=== PATIENT | female | born 1990 | race African-American/Black ===

== ENCOUNTER 2021-08-27 08:06 | Inpatient (IN) | payer BC, OTHER ==
[~2021-08-27] VITALS: Ht 167.6 cm; Wt 117.9 kg
[2021-08-27] MEDS ORDERED: KETOROLAC TROMETHAMINE 30 MG/ML VIAL IV STA (08:37)
[2021-08-27] MEDS ORDERED: LACTATED RINGER'S 1,000 ML INJ ONE (08:45)
[2021-08-27 09:09] LABS: BASOPHILS # (AUTO) 0.1 (0.0-0.1); BASOPHILS % 0.3 % (0.0-1.0); EOSINOPHILS # (AUTO) 0.3 (0.0-0.4); EOSINOPHILS % 1.7 % (0.0-6.0); LYMPHOCYTES # (AUTO) 2.1 (1.0-3.2); LYMPHOCYTES % 12.3 % (18.0-39.1); MEAN CORPUSCULAR HEMOGLOBIN 15.9 pg (28-32); MEAN CORPUSCULAR HGB CONC 26.2 g/dL (31-35); MEAN CORPUSCULAR VOLUME 60.5 fL (81-99); MONOCYTES # (AUTO) 1.4 (0.2-0.8); MONOCYTES % 7.8 % (4.4-11.3); NEUTROPHILS # (AUTO) 13.4 (2.1-6.9); NEUTROPHILS % 76.9 % (38.7-80.0); PLATELET COUNT 664 x10e3/uL (140-360); RED BLOOD COUNT 3.09 x10e6/uL (3.6-5.1); RED CELL DISTRIBUTION WIDTH 20.6 % (11.7-14.4)
[2021-08-27 09:16] LABS: HEMATOCRIT 18.7 % (34.2-44.1); HEMOGLOBIN 4.9 g/dL (12.0-16.0)
[2021-08-27] MEDS ORDERED: SODIUM CHLORIDE 0.9% 250ML 250 ML IV ONE (09:30)
[2021-08-27 09:35] LABS: ANION GAP 15.3 mmol/L (8-16); CALCIUM 9.3 mg/dL (8.4-10.2); CREATININE, SERUM 0.79 mg/dL (0.57-1.11); POTASSIUM 3.3 mmol/L (3.5-5.1)
[2021-08-27 10:23] LABS: FERRITIN 27.19 ng/mL (4.63-204.00)
[2021-08-27 11:40] VITALS: BP 118/67
[2021-08-27 11:53] LABS: BASOPHILS # (AUTO) 0.1 (0.0-0.1); BASOPHILS % 0.3 % (0.0-1.0); EOSINOPHILS # (AUTO) 0.3 (0.0-0.4); EOSINOPHILS % 1.6 % (0.0-6.0); LYMPHOCYTES # (AUTO) 2.2 (1.0-3.2); LYMPHOCYTES % 13.4 % (18.0-39.1); MEAN CORPUSCULAR HEMOGLOBIN 15.9 pg (28-32); MEAN CORPUSCULAR HGB CONC 25.7 g/dL (31-35); MEAN CORPUSCULAR VOLUME 61.8 fL (81-99); MONOCYTES # (AUTO) 1.3 (0.2-0.8); MONOCYTES % 7.7 % (4.4-11.3); NEUTROPHILS # (AUTO) 12.5 (2.1-6.9); NEUTROPHILS % 76.3 % (38.7-80.0); PLATELET COUNT 614 x10e3/uL (140-360); RED BLOOD COUNT 2.83 x10e6/uL (3.6-5.1)
[2021-08-27 11:54] VITALS: BP 118/67
[2021-08-27 11:57] LABS: HEMATOCRIT 17.5 % (34.2-44.1)
[2021-08-27 11:59] LABS: HEMOGLOBIN 4.5 g/dL (12.0-16.0)
[2021-08-27 12:06] LABS: EOSINOPHILS % (MANUAL) 1 % (0-7); LYMPHOCYTES % (MANUAL) 19 % (19-48); MONOCYTES % (MANUAL) 4 % (3.4-9.0); NEUTROPHILS % (MANUAL) 75 % (40-74); PLATELET ESTIMATE SLIGHTLY INCREASED; PLATELET MORPHOLOGY COMMENT NORMAL
[2021-08-27 12:07] LABS: HYPOCHROMASIA SLIGHT; RBC MORPHOLOGY COMMENT NORMAL
[2021-08-27] MEDS ORDERED: FERROUS SULFAT325 MG PO (12:10)
[2021-08-27 13:40] LABS: CLARITY,URINE CLEAR (CLEAR); COLOR,URINE YELLOW (YELLOW); KETONES,URINE TRACE (NEGATIVE); LEUKOCYTE ESTERASE ,URINE TRACE (NEGATIVE); NITRITE,URINE NEGATIVE (NEGATIVE); PROTEIN,URINE DIPSTICK 2+ (NEGATIVE); URINE UROBILINOGEN 0.2 mg/dL (0.2 - 1)
[2021-08-27 13:42] LABS: BACTERIA,URINE RARE /HPF; EPITHELIAL CELLS,URINE FEW /LPF; RBC,URINE 0-5 /HPF (0-5)
[2021-08-27] MEDS ORDERED: SODIUM CHLORIDE 0.9% 250ML 250 ML ONE (14:16)
[2021-08-27 16:58] VITALS: BP 126/82
[2021-08-27] MEDS: SODIUM FERRIC GLUCONATE COMPLX 125 MG in SODIUM CHLORIDE 0.9% 100 ML 100 ML IV SCH (17:00)
[2021-08-27] MEDS ORDERED: FUROSEMIDE INJ 10 MG/ML 2 ML VIAL IV ONE (18:30)
[2021-08-27 20:32] VITALS: BP 118/76
[2021-08-27 20:33] VITALS: BP 118/76
[2021-08-27] MEDS ORDERED: METOPROLOL TARTRATE INJ 1 MG/ML VIAL IV PRN (21:30)
[2021-08-27] MEDS ORDERED: SODIUM CHLORIDE 0.9% 500ML 500 ML ONE (21:44)
[2021-08-27] MEDS: BENZONATATE 100 MG CAP PO PRN (21:45)
[2021-08-27] MEDS: ACETAMINOPHEN 325 MG TAB PO PRN (21:51)
[2021-08-27 23:02] VITALS: BP 118/76
[2021-08-28] VITALS (10 sets, daily range): BP systolic 116–131; BP diastolic 75–88
[2021-08-28 06:30] LABS: ANION GAP 14.2 mmol/L (8-16); CREATININE, SERUM 0.78 mg/dL (0.57-1.11); POTASSIUM 3.2 mmol/L (3.5-5.1)
[2021-08-28 06:51] LABS: CALCIUM 8.6 mg/dL (8.4-10.2)
[2021-08-28 10:00] LABS: BASOPHILS % 0.2 % (0.0-1.0); EOSINOPHILS # (AUTO) 0.5 (0.0-0.4); EOSINOPHILS % 3.3 % (0.0-6.0); LYMPHOCYTES % 14.6 % (18.0-39.1); MEAN CORPUSCULAR HEMOGLOBIN 18.2 pg (28-32); MEAN CORPUSCULAR HGB CONC 27.8 g/dL (31-35); MEAN CORPUSCULAR VOLUME 65.5 fL (81-99); MONOCYTES # (AUTO) 0.9 (0.2-0.8); MONOCYTES % 6.3 % (4.4-11.3); NEUTROPHILS # (AUTO) 10.4 (2.1-6.9); PLATELET COUNT 612 x10e3/uL (140-360); RED CELL DISTRIBUTION WIDTH 23.6 % (11.7-14.4)
[2021-08-28 10:01] LABS: HEMATOCRIT 21.6 % (34.2-44.1)
[2021-08-28 10:15] LABS: CHOL/HDL RATIO 3.4 (3.0-3.6)
[2021-08-28] MEDS ORDERED: SODIUM CHLORIDE 0.9% 250ML 250 ML ONE ×2 (10:23→16:26)
[2021-08-28 11:31] LABS: HYPOCHROMASIA MODERATE; PLATELET ESTIMATE MODERATELY INCREASED; PLATELET MORPHOLOGY COMMENT NORMAL; RBC MORPHOLOGY COMMENT ABNORMAL
[2021-08-28 11:32] LABS: ANISOCYTOSIS MARKED; ELLIPTOCYTE, RBC SLIGHT; MICROCYTOSIS MODERATE; OVALOCYTES FEW; POLYCHROMASIA FEW
[2021-08-28] MEDS: SODIUM FERRIC GLUCONATE COMPLX 125 MG in SODIUM CHLORIDE 0.9% 100 ML 100 ML IV SCH (14:30)
[2021-08-28] MEDS ORDERED: SODIUM CHLORIDE 0.9% 50ML 50 ML ONE (16:11)
[2021-08-28] MEDS ORDERED: IOPAMIDOL 370 MG/ML 200 ML INFUS..BTL INJ ONE (16:11)
[2021-08-28 17:22] LABS: BASOPHILS % 0.3 % (0.0-1.0); EOSINOPHILS # (AUTO) 0.4 (0.0-0.4); LYMPHOCYTES # (AUTO) 2.2 (1.0-3.2); LYMPHOCYTES % 16.8 % (18.0-39.1); MEAN CORPUSCULAR HEMOGLOBIN 19.2 pg (28-32); MEAN CORPUSCULAR HGB CONC 27.9 g/dL (31-35); MEAN CORPUSCULAR VOLUME 68.7 fL (81-99); MONOCYTES # (AUTO) 0.9 (0.2-0.8); MONOCYTES % 7.2 % (4.4-11.3); NEUTROPHILS # (AUTO) 9.5 (2.1-6.9); PLATELET COUNT 494 x10e3/uL (140-360); RED BLOOD COUNT 3.23 x10e6/uL (3.6-5.1); RED CELL DISTRIBUTION WIDTH 25.8 % (11.7-14.4)
[2021-08-28 17:24] LABS: HEMATOCRIT 22.2 % (34.2-44.1)
[2021-08-28 17:25] LABS: HEMOGLOBIN 6.2 g/dL (12.0-16.0)
[2021-08-28] MEDS ORDERED: SODIUM CHLORIDE 0.9% 250ML 250 ML IV ONE (18:15)
[2021-08-29] VITALS (8 sets, daily range): BP systolic 114–148; BP diastolic 80–85
[2021-08-29] MEDS: BENZONATATE 100 MG CAP PO PRN (01:37)
[2021-08-29] MEDS ORDERED: ALBUTEROL/IPRATROPIUM 3 ML NEB NEB PRN (06:45)
[2021-08-29 08:40] LABS: BASOPHILS % 0.2 % (0.0-1.0); EOSINOPHILS # (AUTO) 0.4 (0.0-0.4); EOSINOPHILS % 3.1 % (0.0-6.0); HEMATOCRIT 27.8 % (34.2-44.1); LYMPHOCYTES # (AUTO) 1.9 (1.0-3.2); LYMPHOCYTES % 15.4 % (18.0-39.1); MEAN CORPUSCULAR HEMOGLOBIN 20.4 pg (28-32); MEAN CORPUSCULAR HGB CONC 28.8 g/dL (31-35); MEAN CORPUSCULAR VOLUME 70.9 fL (81-99); MONOCYTES # (AUTO) 0.8 (0.2-0.8); MONOCYTES % 6.5 % (4.4-11.3); NEUTROPHILS # (AUTO) 9.2 (2.1-6.9); NEUTROPHILS % 74.2 % (38.7-80.0); PLATELET COUNT 518 x10e3/uL (140-360); RED BLOOD COUNT 3.92 x10e6/uL (3.6-5.1); RED CELL DISTRIBUTION WIDTH 26.2 % (11.7-14.4)
[2021-08-29] MEDS: ENOXAPARIN SODIUM INJ 100 MG/ML SYR SC SCH ×2 (10:29→21:00)
[2021-08-29] MEDS: PANTOPRAZOLE SOD 40 MG TABEC PO SCH ×2 (10:29→21:00)
[2021-08-29 11:02] LABS: HYPOCHROMASIA SLIGHT; PLATELET ESTIMATE ADEQUATE; PLATELET MORPHOLOGY COMMENT NORMAL
[2021-08-29 11:03] LABS: ANISOCYTOSIS MARKED; MICROCYTOSIS MODERATE; OVALOCYTES FEW; RBC MORPHOLOGY COMMENT ABNORMAL
[2021-08-29] MEDS ORDERED: SODIUM CHLORIDE 0.9% 250ML 250 ML ONE (12:58)
[2021-08-29] MEDS: ALBUTEROL/IPRATROPIUM 3 ML NEB NEB SCH ×2 (13:50→19:30)
[2021-08-29] MEDS ORDERED: FUROSEMIDE INJ 10 MG/ML 2 ML VIAL IV ONE (14:30)
[2021-08-29] MEDS: SODIUM FERRIC GLUCONATE COMPLX 125 MG in SODIUM CHLORIDE 0.9% 100 ML 100 ML IV SCH (14:30)
[2021-08-29] MEDS: METHYLPREDNISOLONE SOD SUCC 40 MG/ML VIAL 1ML IV SCH (17:26)
[2021-08-29] MEDS ORDERED: ONDANSETRON HCL INJ 2MG/ML 2ML 2 MG/ML VIAL IV PRN (17:45)
[2021-08-29] MEDS ORDERED: ALPRAZOLAM 0.5 MG TAB PO PRN (18:15)
[2021-08-29] MEDS: BUDESONIDE 0.5MG/2 ML NEB INH SCH (19:30)
[2021-08-29] MEDS ORDERED: SODIUM CHLORIDE 0.9% 50ML 50 ML ONE (22:45)
[2021-08-30] VITALS (7 sets, daily range): BP systolic 131–148; BP diastolic 85–101
[2021-08-30] MEDS: ALBUTEROL/IPRATROPIUM 3 ML NEB NEB SCH ×4 (00:20→18:55)
[2021-08-30 05:07] LABS: BASOPHILS % 0.1 % (0.0-1.0); EOSINOPHILS % 0.1 % (0.0-6.0); HEMATOCRIT 25.9 % (34.2-44.1); HEMOGLOBIN 7.4 g/dL (12.0-16.0); LYMPHOCYTES # (AUTO) 1.2 (1.0-3.2); LYMPHOCYTES % 8.2 % (18.0-39.1); MEAN CORPUSCULAR HEMOGLOBIN 20.4 pg (28-32); MEAN CORPUSCULAR HGB CONC 28.6 g/dL (31-35); MEAN CORPUSCULAR VOLUME 71.5 fL (81-99); MONOCYTES # (AUTO) 0.9 (0.2-0.8); MONOCYTES % 5.9 % (4.4-11.3); NEUTROPHILS # (AUTO) 12.6 (2.1-6.9); NEUTROPHILS % 84.9 % (38.7-80.0); PLATELET COUNT 536 x10e3/uL (140-360); RED BLOOD COUNT 3.62 x10e6/uL (3.6-5.1); RED CELL DISTRIBUTION WIDTH 26.5 % (11.7-14.4)
[2021-08-30] MEDS: METHYLPREDNISOLONE SOD SUCC 40 MG/ML VIAL 1ML IV SCH ×2 (05:19→18:18)
[2021-08-30 05:46] LABS: ANION GAP 12.8 mmol/L (8-16); CALCIUM 9.3 mg/dL (8.4-10.2); CREATININE, SERUM 0.71 mg/dL (0.57-1.11); POTASSIUM 3.8 mmol/L (3.5-5.1)
[2021-08-30] MEDS ORDERED: FUROSEMIDE INJ 10 MG/ML 2 ML VIAL IV ONE ×2 (07:00→12:00)
[2021-08-30] MEDS: BUDESONIDE 0.5MG/2 ML NEB INH SCH ×2 (07:11→19:10)
[2021-08-30] MEDS: PANTOPRAZOLE SOD 40 MG TABEC PO SCH ×2 (08:56→20:37)
[2021-08-30] MEDS: ENOXAPARIN SODIUM INJ 100 MG/ML SYR SC SCH ×2 (09:01→20:37)
[2021-08-30] MEDS: SODIUM FERRIC GLUCONATE COMPLX 125 MG in SODIUM CHLORIDE 0.9% 100 ML 100 ML IV SCH (14:32)
[2021-08-30 17:27] LABS: HEMATOCRIT 28.1 % (34.2-44.1)
[2021-08-30 20:12] LABS: HEMATOCRIT 28.7 % (34.2-44.1); HEMOGLOBIN 8.1 g/dL (12.0-16.0)
[2021-08-30] MEDS: ACETAMINOPHEN 325 MG TAB PO PRN (21:50)
[2021-08-31] VITALS (9 sets, daily range): BP systolic 127–142; BP diastolic 78–87
[2021-08-31] MEDS: ALBUTEROL/IPRATROPIUM 3 ML NEB NEB SCH ×4 (01:20→19:55)
[2021-08-31] MEDS: METHYLPREDNISOLONE SOD SUCC 40 MG/ML VIAL 1ML IV SCH (05:38)
[2021-08-31 07:50] LABS: BASOPHILS % 0.1 % (0.0-1.0); EOSINOPHILS % 0.1 % (0.0-6.0); HEMATOCRIT 27.2 % (34.2-44.1); HEMOGLOBIN 7.7 g/dL (12.0-16.0); LYMPHOCYTES # (AUTO) 1.1 (1.0-3.2); LYMPHOCYTES % 7.1 % (18.0-39.1); MEAN CORPUSCULAR HEMOGLOBIN 20.4 pg (28-32); MEAN CORPUSCULAR HGB CONC 28.3 g/dL (31-35); MEAN CORPUSCULAR VOLUME 72.1 fL (81-99); MONOCYTES % 6.2 % (4.4-11.3); NEUTROPHILS # (AUTO) 13.8 (2.1-6.9); PLATELET COUNT 512 x10e3/uL (140-360); RED BLOOD COUNT 3.77 x10e6/uL (3.6-5.1); RED CELL DISTRIBUTION WIDTH 27.8 % (11.7-14.4)
[2021-08-31] MEDS: BUDESONIDE 0.5MG/2 ML NEB INH SCH ×2 (08:03→19:55)
[2021-08-31 08:14] LABS: ANION GAP 12.7 mmol/L (8-16); CALCIUM 9.6 mg/dL (8.4-10.2); CREATININE, SERUM 0.69 mg/dL (0.57-1.11); POTASSIUM 3.7 mmol/L (3.5-5.1)
[2021-08-31] MEDS: ENOXAPARIN SODIUM INJ 100 MG/ML SYR SC SCH ×2 (09:39→20:06)
[2021-08-31] MEDS: PANTOPRAZOLE SOD 40 MG TABEC PO SCH ×2 (09:39→20:06)
[2021-08-31] MEDS ORDERED: FUROSEMIDE 20 MG TAB PO ONE (14:00)
[2021-08-31] MEDS: SODIUM FERRIC GLUCONATE COMPLX 125 MG in SODIUM CHLORIDE 0.9% 100 ML 100 ML IV SCH (15:30)
[2021-08-31] MEDS: DOCUSATE SODIUM 100 MG CAP PO SCH (16:15)
[2021-08-31] MEDS: SENNOSIDES 8.6 MG TAB PO SCH (16:16)
[2021-08-31] MEDS ORDERED: SODIUM CHLORIDE 0.9% 250ML 250 ML ONE (20:19)
[2021-09-01] VITALS (8 sets, daily range): BP systolic 118–141; BP diastolic 67–96
[2021-09-01] MEDS: ALBUTEROL/IPRATROPIUM 3 ML NEB NEB SCH ×4 (02:25→19:15)
[2021-09-01] MEDS: BUDESONIDE 0.5MG/2 ML NEB INH SCH ×2 (07:08→19:15)
[2021-09-01] MEDS: SENNOSIDES 8.6 MG TAB PO SCH ×2 (09:00→16:37)
[2021-09-01] MEDS: PANTOPRAZOLE SOD 40 MG TABEC PO SCH (09:00)
[2021-09-01] MEDS: ENOXAPARIN SODIUM INJ 100 MG/ML SYR SC SCH (09:00)
[2021-09-01] MEDS: DOCUSATE SODIUM 100 MG CAP PO SCH ×2 (09:00→16:37)
[2021-09-01 09:05] LABS: BASOPHILS % 0.3 % (0.0-1.0); EOSINOPHILS # (AUTO) 0.1 (0.0-0.4); EOSINOPHILS % 0.9 % (0.0-6.0); HEMATOCRIT 29.3 % (34.2-44.1); HEMOGLOBIN 8.2 g/dL (12.0-16.0); LYMPHOCYTES # (AUTO) 2.7 (1.0-3.2); LYMPHOCYTES % 23.2 % (18.0-39.1); MEAN CORPUSCULAR HEMOGLOBIN 20.2 pg (28-32); MEAN CORPUSCULAR VOLUME 72.3 fL (81-99); MONOCYTES # (AUTO) 0.8 (0.2-0.8); MONOCYTES % 7.1 % (4.4-11.3); NEUTROPHILS % 67.9 % (38.7-80.0); PLATELET COUNT 473 x10e3/uL (140-360); RED BLOOD COUNT 4.05 x10e6/uL (3.6-5.1); RED CELL DISTRIBUTION WIDTH 28.7 % (11.7-14.4)
[2021-09-01 09:32] LABS: ANION GAP 15.1 mmol/L (8-16); CALCIUM 9.9 mg/dL (8.4-10.2); CREATININE, SERUM 0.75 mg/dL (0.57-1.11); POTASSIUM 3.1 mmol/L (3.5-5.1)
[2021-09-01] MEDS: SODIUM FERRIC GLUCONATE COMPLX 125 MG in SODIUM CHLORIDE 0.9% 100 ML 100 ML IV SCH (14:30)
[2021-09-01] MEDS ORDERED: POTASSIUM CHLORIDE 20 MEQ TAB CR PO STA (17:58)
[2021-09-01] MEDS ORDERED: PROTONIX40 MG/ML PO (18:04)
[2021-09-01] MEDS ORDERED: Benzonatate PO (18:04)
[2021-09-01] MEDS ORDERED: DOXYCYCLINE HY100 MG PO (18:04)
[2021-09-01] MEDS ORDERED: ELIQUIS5 MG PO (18:04)
[2021-09-01] MEDS ORDERED: Ferrous Sulfate PO (18:04)
[2021-09-01] MEDS ORDERED: COLACE100 MG PO (18:04)
[2021-09-04] MEDS ORDERED: FERROUS SULFATE 325 MG TAB PO SCH (09:00)
== END 2021-09-01 20:42 | disposition home health service (06) | DRG 871 ==
LOC: ER 08:17 → ERHOLD 09:31 → MED/SURG2 11:04 → OBSVTOIN 08-28 08:13
PROVIDERS: ADMIT Internal Medicine; ATTEND Internal Medicine
PROC: 30233N1 Transfusion of Nonautologous Red Blood Cells into Peripheral Vein, Percutaneous Approach (ICD-10-PCS; principal; 2021-08-27)
DX: A41.9 Sepsis, unspecified organism (principal); J18.9 Pneumonia, unspecified organism; I26.94 Multiple subsegmental thrombotic pulmonary emboli without acute cor pulmonale; J96.00 Acute respiratory failure, unspecified whether with hypoxia or hypercapnia; Z68.41 Body mass index [BMI] 40.0-44.9, adult; N92.0 Excessive and frequent menstruation with regular cycle; D50.9 Iron deficiency anemia, unspecified; D75.838 Other thrombocytosis; E87.6 Hypokalemia; E66.01 Morbid (severe) obesity due to excess calories; Z88.0 Allergy status to penicillin; Z20.822 Contact with and (suspected) exposure to COVID-19; E87.70 Fluid overload, unspecified; R04.0 Epistaxis
CPT/HCPCS: 36415; 71045; 71046; 71260; 76856; 80048; 80061; 81001; 82607; 82728; 83036; 83540; 84466; 84484; 84702; 85014; 85018; 85025; 85730; 86850; 86900; 86920; 93005; 93306; 93970; 94640; 94799; 97139; 99284; G0378; J0456; J1650; J1885; J1940; J2916; J2920; J7040; J7050; J7121; P9016; Q9967; U0002

== ENCOUNTER 2022-05-31 20:53 | Inpatient (IN) | payer BC ==
[~2022-05-31] VITALS: Ht 167.6 cm; Wt 120.7 kg
[~2022-05-31 20:53] MED LIST: Benzonatate PO; COLACE100 MG PO; DOXYCYCLINE HY100 MG PO; ELIQUIS5 MG PO; FERROUS SULFAT325 MG PO; Ferrous Sulfate PO; PROTONIX40 MG/ML PO
[2022-05-31 22:47] LABS: ALBUMIN 3.5 g/dL (3.5-5.0); ALBUMIN/GLOBULIN RATIO 0.9 (0.8-2.0); ANION GAP 16.7 mmol/L (8-16); CALCIUM 8.7 mg/dL (8.4-10.2); CREATININE, SERUM 0.77 mg/dL (0.57-1.11); POTASSIUM 3.7 mmol/L (3.5-5.1)
[2022-05-31 23:05] LABS: BASOPHILS % 0.2 % (0.0-1.0); EOSINOPHILS # (AUTO) 0.1 (0.0-0.4); EOSINOPHILS % 1.1 % (0.0-6.0); LYMPHOCYTES # (AUTO) 2.1 (1.0-3.2); LYMPHOCYTES % 19.3 % (18.0-39.1); MEAN CORPUSCULAR HEMOGLOBIN 20.8 pg (28-32); MEAN CORPUSCULAR HGB CONC 25.2 g/dL (31-35); MEAN CORPUSCULAR VOLUME 82.7 fL (81-99); MONOCYTES # (AUTO) 0.9 (0.2-0.8); MONOCYTES % 8.4 % (4.4-11.3); NEUTROPHILS # (AUTO) 7.6 (2.1-6.9); NEUTROPHILS % 69.6 % (38.7-80.0); PLATELET COUNT 314 x10e3/uL (140-360); RED BLOOD COUNT 1.68 x10e6/uL (3.6-5.1); RED CELL DISTRIBUTION WIDTH 23.1 % (11.7-14.4)
[2022-05-31 23:08] LABS: HEMATOCRIT 13.9 % (34.2-44.1); HEMOGLOBIN 3.5 g/dL (12.0-16.0)
[2022-05-31] MEDS ORDERED: SODIUM CHLORIDE 0.9% 250ML 250 ML IV ONE (23:30)
[2022-05-31] MEDS ORDERED: ONDANSETRON HCL INJ 2MG/ML 2ML 2 MG/ML VIAL IV PRN (23:45)
[2022-05-31] MEDS ORDERED: SODIUM CHLORIDE FLUSH 10 ML SYR INJ PRN (23:45)
[2022-06-01] MEDS ORDERED: ACETAMINOPHEN 325 MG TAB PO PRN (02:15)
[2022-06-01] MEDS: MEDROXYPROGESTERONE ACETATE 2.5 MG TAB PO SCH ×2 (02:23→09:00)
[2022-06-01] MEDS ORDERED: ACETAMINOPHEN 325 MG TAB ONE (02:27)
[2022-06-01] MEDS ORDERED: SODIUM CHLORIDE 0.9% 250ML 250 ML ONE ×3 (02:44→10:54)
[2022-06-01 08:30] VITALS: BP 125/70
[2022-06-01 08:31] VITALS: BP 125/70
[2022-06-01 09:21] LABS: BASOPHILS % 0.3 % (0.0-1.0); EOSINOPHILS # (AUTO) 0.1 (0.0-0.4); EOSINOPHILS % 1.4 % (0.0-6.0); LYMPHOCYTES # (AUTO) 1.9 (1.0-3.2); LYMPHOCYTES % 19.5 % (18.0-39.1); MEAN CORPUSCULAR HGB CONC 29.6 g/dL (31-35); MEAN CORPUSCULAR VOLUME 87.6 fL (81-99); MONOCYTES # (AUTO) 0.7 (0.2-0.8); MONOCYTES % 6.9 % (4.4-11.3); NEUTROPHILS # (AUTO) 6.9 (2.1-6.9); NEUTROPHILS % 70.7 % (38.7-80.0); PLATELET COUNT 278 x10e3/uL (140-360); RED BLOOD COUNT 2.58 x10e6/uL (3.6-5.1); RED CELL DISTRIBUTION WIDTH 19.9 % (11.7-14.4)
[2022-06-01 09:31] LABS: HEMATOCRIT 22.6 % (34.2-44.1); HEMOGLOBIN 6.7 g/dL (12.0-16.0)
[2022-06-01 09:48] LABS: ALBUMIN 3.4 g/dL (3.5-5.0); ALBUMIN/GLOBULIN RATIO 0.9 (0.8-2.0); ANION GAP 12.8 mmol/L (8-16); CALCIUM 8.3 mg/dL (8.4-10.2); CREATININE, SERUM 0.73 mg/dL (0.57-1.11); POTASSIUM 3.8 mmol/L (3.5-5.1)
[2022-06-01 10:28] LABS: % IRON SATURATION 18 % (15-50); IRON 90 ug/dL (50-170); TOTAL IRON BINDING CAPACITY 496 ug/dL (261-478); TRANSFERRIN 354 mg/dL (180-382)
[2022-06-01 11:36] VITALS: BP 124/76
[2022-06-01] MEDS ORDERED: IOPAMIDOL 370 MG/ML 100 ML INFUS..BTL INJ ONE (12:22)
[2022-06-01] MEDS: IRON SUCROSE 100 MG in SODIUM CHLORIDE 0.9% 100 ML IV SCH (14:00)
[2022-06-01 15:19] VITALS: BP 121/90
[2022-06-01 20:00] VITALS: BP_SYST 141; BP_SYST 153; BP_DIAS 61; BP_DIAS 92
[2022-06-02] VITALS (7 sets, daily range): BP systolic 117–130; BP diastolic 76–90
[2022-06-02 07:16] LABS: HEMATOCRIT 25.3 % (34.2-44.1); HEMOGLOBIN 7.5 g/dL (12.0-16.0)
[2022-06-02] MEDS: MEDROXYPROGESTERONE ACETATE 2.5 MG TAB PO SCH (09:11)
[2022-06-02] MEDS: IRON SUCROSE 100 MG in SODIUM CHLORIDE 0.9% 100 ML IV SCH (12:18)
[2022-06-02 14:02] LABS: INR 0.87; PROTHROMBIN TIME 12.6 seconds (11.9-14.5)
[2022-06-02 14:03] LABS: PARTIAL THROMBOPLASTIN TIME 31.7 seconds (23.8-35.5)
[2022-06-03] VITALS (8 sets, daily range): BP systolic 104–139; BP diastolic 64–89
[2022-06-03 05:43] LABS: BASOPHILS % 0.2 % (0.0-1.0); EOSINOPHILS # (AUTO) 0.1 (0.0-0.4); EOSINOPHILS % 1.5 % (0.0-6.0); HEMATOCRIT 23.2 % (34.2-44.1); HEMOGLOBIN 7.1 g/dL (12.0-16.0); LYMPHOCYTES # (AUTO) 1.9 (1.0-3.2); LYMPHOCYTES % 21.6 % (18.0-39.1); MEAN CORPUSCULAR HEMOGLOBIN 26.2 pg (28-32); MEAN CORPUSCULAR HGB CONC 30.6 g/dL (31-35); MEAN CORPUSCULAR VOLUME 85.6 fL (81-99); MONOCYTES # (AUTO) 0.6 (0.2-0.8); MONOCYTES % 7.4 % (4.4-11.3); NEUTROPHILS # (AUTO) 5.9 (2.1-6.9); NEUTROPHILS % 68.6 % (38.7-80.0); PLATELET COUNT 247 x10e3/uL (140-360); RED BLOOD COUNT 2.71 x10e6/uL (3.6-5.1); RED CELL DISTRIBUTION WIDTH 19.8 % (11.7-14.4)
[2022-06-03] MEDS: MEDROXYPROGESTERONE ACETATE 2.5 MG TAB PO SCH (09:02)
[2022-06-03] MEDS: IRON SUCROSE 100 MG in SODIUM CHLORIDE 0.9% 100 ML IV SCH (11:59)
[2022-06-04] VITALS (7 sets, daily range): BP systolic 104–125; BP diastolic 60–82
[2022-06-04 06:20] LABS: BASOPHILS % 0.2 % (0.0-1.0); EOSINOPHILS # (AUTO) 0.1 (0.0-0.4); EOSINOPHILS % 1.5 % (0.0-6.0); HEMATOCRIT 26.2 % (34.2-44.1); HEMOGLOBIN 7.6 g/dL (12.0-16.0); LYMPHOCYTES # (AUTO) 1.9 (1.0-3.2); LYMPHOCYTES % 21.3 % (18.0-39.1); MEAN CORPUSCULAR HEMOGLOBIN 25.9 pg (28-32); MEAN CORPUSCULAR VOLUME 89.1 fL (81-99); MONOCYTES # (AUTO) 0.5 (0.2-0.8); MONOCYTES % 6.2 % (4.4-11.3); NEUTROPHILS # (AUTO) 6.1 (2.1-6.9); NEUTROPHILS % 70.2 % (38.7-80.0); PLATELET COUNT 260 x10e3/uL (140-360); RED BLOOD COUNT 2.94 x10e6/uL (3.6-5.1); RED CELL DISTRIBUTION WIDTH 19.9 % (11.7-14.4)
[2022-06-04] MEDS: MEDROXYPROGESTERONE ACETATE 2.5 MG TAB PO SCH (08:31)
[2022-06-04] MEDS: IRON SUCROSE 100 MG in SODIUM CHLORIDE 0.9% 100 ML IV SCH (10:59)
[2022-06-04] MEDS ORDERED: ONDANSETRON HCL 4 MG ORAL DISINTEGRATING TAB PO PRN (13:45)
[2022-06-05 05:52] LABS: BASOPHILS % 0.3 % (0.0-1.0); EOSINOPHILS # (AUTO) 0.1 (0.0-0.4); EOSINOPHILS % 1.4 % (0.0-6.0); HEMOGLOBIN 8.1 g/dL (12.0-16.0); LYMPHOCYTES # (AUTO) 1.8 (1.0-3.2); LYMPHOCYTES % 19.7 % (18.0-39.1); MEAN CORPUSCULAR VOLUME 86.5 fL (81-99); MONOCYTES # (AUTO) 0.6 (0.2-0.8); MONOCYTES % 6.5 % (4.4-11.3); NEUTROPHILS # (AUTO) 6.4 (2.1-6.9); NEUTROPHILS % 71.8 % (38.7-80.0); PLATELET COUNT 280 x10e3/uL (140-360); RED BLOOD COUNT 3.12 x10e6/uL (3.6-5.1); RED CELL DISTRIBUTION WIDTH 19.9 % (11.7-14.4)
[2022-06-05 07:51] VITALS: BP 122/74
[2022-06-05 08:11] VITALS: BP 122/74
[2022-06-05] MEDS: MEDROXYPROGESTERONE ACETATE 2.5 MG TAB PO SCH ×2 (08:26→16:21)
[2022-06-05] MEDS ORDERED: XARELTO20 MG PO (08:43)
[2022-06-05] MEDS: IRON SUCROSE 100 MG in SODIUM CHLORIDE 0.9% 100 ML IV SCH (11:40)
[2022-06-05 12:11] VITALS: BP 124/75
[2022-06-05 15:56] VITALS: BP 116/77
[2022-06-05 20:00] VITALS: BP 133/77
[2022-06-05 20:46] VITALS: BP 133/77
[2022-06-06] VITALS: BP 112/59
[2022-06-06 04:00] VITALS: BP 118/72
[2022-06-06 06:02] LABS: BASOPHILS % 0.3 % (0.0-1.0); EOSINOPHILS # (AUTO) 0.1 (0.0-0.4); EOSINOPHILS % 1.4 % (0.0-6.0); HEMATOCRIT 26.6 % (34.2-44.1); HEMOGLOBIN 7.6 g/dL (12.0-16.0); LYMPHOCYTES # (AUTO) 1.9 (1.0-3.2); LYMPHOCYTES % 20.6 % (18.0-39.1); MEAN CORPUSCULAR HGB CONC 28.6 g/dL (31-35); MEAN CORPUSCULAR VOLUME 91.1 fL (81-99); MONOCYTES # (AUTO) 0.7 (0.2-0.8); MONOCYTES % 7.5 % (4.4-11.3); NEUTROPHILS # (AUTO) 6.6 (2.1-6.9); NEUTROPHILS % 69.9 % (38.7-80.0); PLATELET COUNT 275 x10e3/uL (140-360); RED BLOOD COUNT 2.92 x10e6/uL (3.6-5.1); RED CELL DISTRIBUTION WIDTH 19.2 % (11.7-14.4)
[2022-06-06 07:51] VITALS: BP 117/73
[2022-06-06 08:04] VITALS: BP 117/73
[2022-06-06 09:11] LABS: PLATELET ESTIMATE ADEQUATE; PLATELET MORPHOLOGY COMMENT NORMAL; POLYCHROMASIA FEW; RBC MORPHOLOGY COMMENT NORMAL
[2022-06-06 09:12] LABS: ANISOCYTOSIS SLIGHT
[2022-06-06] MEDS: MEDROXYPROGESTERONE ACETATE 2.5 MG TAB PO SCH ×2 (09:20→17:01)
[2022-06-06 11:56] VITALS: BP 129/82
[2022-06-06 16:03] VITALS: BP 127/78
[2022-06-06] MEDS ORDERED: PROVERA5 MG PO (16:41)
[2022-06-06] MEDS ORDERED: RIVAROXABAN 20 MG TABLET PO SCH (17:00)
== END 2022-06-06 18:20 | disposition home or self-care (01) | DRG 760 ==
LOC: ER 20:57 → ERHOLD 23:41 → MED/SURG3 06-01 08:15
PROVIDERS: ADMIT Family Medicine; ATTEND Family Medicine
PROC: 30233N1 Transfusion of Nonautologous Red Blood Cells into Peripheral Vein, Percutaneous Approach (ICD-10-PCS; principal; 2022-05-31)
DX: N93.9 Abnormal uterine and vaginal bleeding, unspecified (principal); D68.59 Other primary thrombophilia; Z68.41 Body mass index [BMI] 40.0-44.9, adult; E66.9 Obesity, unspecified; Z86.711 Personal history of pulmonary embolism; Z79.01 Long term (current) use of anticoagulants; D50.0 Iron deficiency anemia secondary to blood loss (chronic); Z20.822 Contact with and (suspected) exposure to COVID-19
CPT/HCPCS: 36415; 71260; 80053; 81241; 81400; 82728; 83036; 83540; 84443; 84466; 84702; 85014; 85018; 85025; 85300; 85301; 85303; 85306; 85610; 85730; 86039; 86850; 86900; 86920; 93970; 93976; 99284; J1756; J7050; P9016; Q9967